=== PATIENT | male | born 1950 | race Asian ===

== ENCOUNTER 2018-01-07 00:22 | Inpatient (IN) | payer MEDICARE, MEDICAID ==
[~2018-01-07] VITALS: Ht 157.5 cm; Wt 58.3 kg
[2018-01-07] MEDS ORDERED: METF500T5 PO (00:48)
[2018-01-07] MEDS ORDERED: TRADJENTA PO (00:48)
[2018-01-07] MEDS ORDERED: LISINOPRIL PO (00:48)
[2018-01-07] MEDS ORDERED: INSU100V8 SQ (00:48)
[2018-01-07] MEDS ORDERED: HYDROCHLOROTHIAZIDE PO (00:48)
[2018-01-07] MEDS ORDERED: HYDR25TA6 PO (00:53)
[2018-01-07] MEDS ORDERED: LEVO75TA5 PO (00:53)
[2018-01-07] MEDS ORDERED: ATOR20TA9 PO (00:53)
[2018-01-07] MEDS ORDERED: LISI-170 PO (00:53)
[2018-01-07] MEDS ORDERED: LINA5TAB PO (00:53)
[2018-01-07] MEDS ORDERED: LEVO50TA5 PO (00:53)
[2018-01-07] MEDS ORDERED: SODIUM CHLORIDE 0.9% 1,000ML IVBOLUS ONE (01:00)
[2018-01-07] MEDS ORDERED: SODIUM CHLORIDE FLUSH 10ML SYR IVF ONE (01:00)
[2018-01-07 01:25] LABS: BASOPHILS # (AUTO) 0.02 x10^3/uL (0-0.1); BASOPHILS % (AUTO) 0 % (0-1); EOSINOPHILS # (AUTO) 0.07 x10^3/uL (0-0.4); EOSINOPHILS % (AUTO) 1 % (1-7); LYMPHOCYTES # (AUTO) 0.86 x10^3/uL (1-3.4); LYMPHOCYTES % (AUTO) 11 % (22-44); MD NO; MEAN CORPUSCULAR HEMOGLOBIN 31.9 pg (27.5-34.5); MEAN CORPUSCULAR HGB CONC 35.2 g/dL (33.2-36.2); MEAN CORPUSCULAR VOLUME 90.5 fL (81-97); MEAN PLATELET VOLUME 7.3 fL (7.4-10.4); MONOCYTES # (AUTO) 0.57 x10^3/uL (0.2-0.8); MONOCYTES % (AUTO) 7 % (2-9); NEUTROPHILS # (AUTO) 6.46 x10^3/uL (1.8-6.8); NEUTROPHILS % (AUTO) 81 % (42-75); PLATELET COUNT 216 x10^3/uL (130-400); RED BLOOD COUNT 4.47 x10^6/uL (4.38-5.82); RED CELL DISTRIBUTION WIDTH 13.7 % (9.4-14.8)
[2018-01-07 01:32] LABS: ALANINE AMINOTRANSFERASE 39 U/L (12-78); ALBUMIN 4.1 g/dL (3.4-5.0); ANION GAP 13 mmol/L (5-15); CALCIUM 8.9 mg/dL (8.5-10.1); CHLORIDE 74 mmol/L (98-107)
[2018-01-07 01:34] LABS: ALKALINE PHOSPHATASE 57 U/L (45-117); BILIRUBIN,TOTAL 1.3 mg/dL (0.2-1.0); CREATININE 1.01 mg/dL (0.7-1.3); TOTAL PROTEIN 7.9 g/dL (6.4-8.2)
[2018-01-07 01:36] LABS: TROPONIN I < 0.015 ng/mL (0.000-0.045)
[2018-01-07] MEDS ORDERED: ONDANSETRON 2MG/ML, 2ML ONE (02:18)
[2018-01-07] MEDS ORDERED: ONDANSETRON 2MG/ML, 2ML IVPush ONE (02:30)
[2018-01-07 03:14] LABS: OSMOLALITY,URINE 754 mOsm/kg (500-850)
[2018-01-07 03:18] LABS: CHLORIDE,URINE RANDOM 111 mmol/L; POTASSIUM,URINE RANDOM 26 mmol/L; SODIUM,URINE RANDOM 82 mmol/L
[2018-01-07 03:22] LABS: MICROSCOPIC NOT IND
[2018-01-07 03:25] LABS: CULTURE INDICATED? NO
[2018-01-07] MEDS ORDERED: BISACODYL 10 MG SUPP PR PRN (03:30)
[2018-01-07] MEDS ORDERED: ONDANSETRON 2MG/ML, 2ML IVPush PRN (03:30)
[2018-01-07] MEDS ORDERED: OXYcodone IR 5MG TABLET PO PRN (03:30)
[2018-01-07] MEDS ORDERED: DOCUSATE 100 MG CAPSULE PO PRN (03:30)
[2018-01-07] MEDS ORDERED: ENALAPRILAT 1.25 MG/ML, 2ML IVPush PRN (03:30)
[2018-01-07] MEDS ORDERED: POLYETHYLENE GLYCOL 17 GM PACKET PO PRN (03:30)
[2018-01-07] MEDS ORDERED: hydrALAzine 20 MG/ML, 1ML IVPush PRN (03:30)
[2018-01-07] MEDS ORDERED: ACETAMINOPHEN 325 MG TABLET PO PRN (03:30)
[2018-01-07] MEDS ORDERED: PROMETHAZINE 25 MG/ML, 1ML IM PRN (03:30)
[2018-01-07] MEDS ORDERED: LABETALOL 5MG/ML, 20ML IVPush PRN (03:30)
[2018-01-07] MEDS ORDERED: ONDANSETRON ODT 4 MG PO PRN (03:30)
[2018-01-07] MEDS ORDERED: morphine SULFATE 10 MG/ML, 1ML IVPush PRN (03:30)
[2018-01-07] MEDS: INSULIN LISPRO 100 UNITS/ML, PEN SQ-INSULIN SCH ×6 (04:00→20:30)
[2018-01-07 05:06] LABS: ANION GAP 10 mmol/L (5-15); CALCIUM 8.3 mg/dL (8.5-10.1); CHLORIDE 78 mmol/L (98-107)
[2018-01-07 05:12] LABS: HEMOGLOBIN A1C 7.8 % (4.2-6.3)
[2018-01-07 05:18] LABS: FREE T4 (FREE THYROXINE) 1.85 ng/dL (0.76-1.46)
[2018-01-07 05:23] VITALS: BP 154/89
[2018-01-07] MEDS: SODIUM CHLORIDE 0.9% 1,000 ML IV SCH ×3 (05:35→23:55)
[2018-01-07] MEDS: LEVOTHYROXINE 50 MCG TABLET PO SCH (06:23)
[2018-01-07 07:12] VITALS: BP 123/67
[2018-01-07] MEDS ORDERED: POTASSIUM CHLORIDE 20 MEQ TAB.ER.PRT PO SCH (08:00)
[2018-01-07] MEDS ORDERED: POTASSIUM PHOSPHATE 44 MEQ in SODIUM CHLORIDE 0.9% 500 ML IV ONE (08:00)
[2018-01-07] MEDS ORDERED: MAGNESIUM SULFATE PMX 4GM/100M 100 ML IV ONE (08:00)
[2018-01-07] MEDS: metFORMIN 500 MG TABLET PO SCH ×2 (09:33→20:29)
[2018-01-07] MEDS: LISINOPRIL 20 MG TABLET PO SCH (09:33)
[2018-01-07] MEDS: HEPARIN 5,000 UNITS/ML, 1ML SQ SCH ×2 (09:34→17:48)
[2018-01-07] MEDS: LINAGLIPTIN 5 MG TAB PO SCH (09:34)
[2018-01-07 10:03] LABS: CLOSTRIDIUM DIFFICILE ANTIGEN NEGATIVE; CLOSTRIDIUM DIFFICILE TOXIN NEGATIVE (Negative)
[2018-01-07 11:19] LABS: ANION GAP 11 mmol/L (5-15); CALCIUM 7.9 mg/dL (8.5-10.1); CHLORIDE 80 mmol/L (98-107); CREATININE 0.96 mg/dL (0.7-1.3)
[2018-01-07 12:42] VITALS: BP 122/76
[2018-01-07 17:41] LABS: ANION GAP 9 mmol/L (5-15); CALCIUM 7.6 mg/dL (8.5-10.1); CHLORIDE 90 mmol/L (98-107)
[2018-01-07 18:26] VITALS: BP 127/69
[2018-01-07] MEDS: INSULIN GLARGINE 100 UNITS/ML, PEN SQ-INSULIN SCH (20:00)
[2018-01-07] MEDS: ATORVASTATIN 20 MG TABLET PO SCH (20:29)
[2018-01-07 23:40] LABS: ANION GAP 8 mmol/L (5-15); CALCIUM 7.4 mg/dL (8.5-10.1); CHLORIDE 95 mmol/L (98-107); CREATININE 0.67 mg/dL (0.7-1.3)
[2018-01-08 01:29] VITALS: BP 113/65
[2018-01-08] MEDS: HEPARIN 5,000 UNITS/ML, 1ML SQ SCH ×3 (03:19→17:17)
[2018-01-08 05:55] LABS: BASOPHILS # (AUTO) 0.01 x10^3/uL (0-0.1); BASOPHILS % (AUTO) 0 % (0-1); EOSINOPHILS # (AUTO) 0.07 x10^3/uL (0-0.4); EOSINOPHILS % (AUTO) 1 % (1-7); LYMPHOCYTES % (AUTO) 11 % (22-44); MD NO; MEAN CORPUSCULAR HEMOGLOBIN 31.4 pg (27.5-34.5); MEAN CORPUSCULAR HGB CONC 34.1 g/dL (33.2-36.2); MEAN CORPUSCULAR VOLUME 91.9 fL (81-97); MEAN PLATELET VOLUME 7.3 fL (7.4-10.4); MONOCYTES # (AUTO) 0.35 x10^3/uL (0.2-0.8); MONOCYTES % (AUTO) 6 % (2-9); NEUTROPHILS # (AUTO) 4.69 x10^3/uL (1.8-6.8); NEUTROPHILS % (AUTO) 82 % (42-75); PLATELET COUNT 182 x10^3/uL (130-400); RED BLOOD COUNT 4.08 x10^6/uL (4.38-5.82); RED CELL DISTRIBUTION WIDTH 13.9 % (9.4-14.8)
[2018-01-08 06:03] LABS: ALBUMIN 3.1 g/dL (3.4-5.0); ANION GAP 11 mmol/L (5-15); CALCIUM 7.2 mg/dL (8.5-10.1); CHLORIDE 97 mmol/L (98-107)
[2018-01-08] MEDS: LEVOTHYROXINE 50 MCG TABLET PO SCH (06:03)
[2018-01-08 06:10] LABS: ALANINE AMINOTRANSFERASE 32 U/L (12-78); ALKALINE PHOSPHATASE 46 U/L (45-117); BILIRUBIN,TOTAL 0.7 mg/dL (0.2-1.0); CHOL/HDL RATIO 1.8; CHOLESTEROL, TOTAL < 50 mg/dL (140-239); CREATININE 0.64 mg/dL (0.7-1.3); HDL CHOLESTEROL (DIRECT) 28 mg/dL (40-60); TOTAL PROTEIN 6.3 g/dL (6.4-8.2); TRIGLYCERIDES 61 mg/dL (50-200); VLDL CHOLESTEROL 12 mg/dL (0-25)
[2018-01-08 06:11] LABS: HDL CHOL % 0 % (26-37); LDL CHOLESTEROL,CALCULATED 10 mg/dL (54-169); LDL/HDL RATIO 0.4 (0.5-3.0)
[2018-01-08] MEDS: INSULIN LISPRO 100 UNITS/ML, PEN SQ-INSULIN SCH ×4 (07:00→21:49)
[2018-01-08 07:50] VITALS: BP 115/62
[2018-01-08] MEDS: LISINOPRIL 20 MG TABLET PO SCH (08:42)
[2018-01-08] MEDS: LINAGLIPTIN 5 MG TAB PO SCH (08:42)
[2018-01-08] MEDS: metFORMIN 500 MG TABLET PO SCH ×2 (08:42→21:49)
[2018-01-08] MEDS: SODIUM CHLORIDE 0.9% 1,000 ML IV SCH ×2 (08:50→22:42)
[2018-01-08] MEDS: POTASSIUM CHLORIDE 20 MEQ TAB.ER.PRT PO SCH ×2 (08:50→17:17)
[2018-01-08] MEDS ORDERED: POTASSIUM PHOSPHATE 44 MEQ in SODIUM CHLORIDE 0.9% 500 ML IV ONE (09:00)
[2018-01-08 13:50] VITALS: BP 128/82
[2018-01-08] MEDS ORDERED: CHOLESTYRAMINE LIGHT 4GM PACKET PO PRN (14:00)
[2018-01-08 16:19] LABS: CRYPTOSPORIDIUM ANTIGEN Negative (Negative)
[2018-01-08 19:36] VITALS: BP 134/77
[2018-01-08] MEDS: ATORVASTATIN 20 MG TABLET PO SCH (21:49)
[2018-01-08] MEDS: INSULIN GLARGINE 100 UNITS/ML, PEN SQ-INSULIN SCH (21:50)
[2018-01-09] MEDS: HEPARIN 5,000 UNITS/ML, 1ML SQ SCH ×3 (01:08→17:06)
[2018-01-09 03:25] VITALS: BP 145/77
[2018-01-09 04:25] VITALS: BP 145/77
[2018-01-09 05:05] VITALS: BP 145/77
[2018-01-09] MEDS: LEVOTHYROXINE 75 MCG TABLET PO SCH (05:39)
[2018-01-09 06:00] LABS: ANION GAP 7 mmol/L (5-15); CALCIUM 7.8 mg/dL (8.5-10.1); CHLORIDE 105 mmol/L (98-107)
[2018-01-09 06:01] LABS: CREATININE 0.68 mg/dL (0.7-1.3)
[2018-01-09] MEDS: INSULIN LISPRO 100 UNITS/ML, PEN SQ-INSULIN SCH ×4 (07:00→21:18)
[2018-01-09 07:40] VITALS: BP 147/73
[2018-01-09] MEDS: NEUTRA PHOS K 250 MG TABLET PO SCH ×2 (09:52→21:18)
[2018-01-09] MEDS: metFORMIN 500 MG TABLET PO SCH ×2 (09:53→21:17)
[2018-01-09] MEDS: LINAGLIPTIN 5 MG TAB PO SCH (09:53)
[2018-01-09] MEDS: LISINOPRIL 20 MG TABLET PO SCH (09:54)
[2018-01-09] MEDS: SODIUM CHLORIDE 0.9% 1,000 ML IV SCH (11:46)
[2018-01-09 13:45] VITALS: BP 115/76
[2018-01-09 20:10] VITALS: BP 135/81
[2018-01-09] MEDS: INSULIN GLARGINE 100 UNITS/ML, PEN SQ-INSULIN SCH (21:17)
[2018-01-09] MEDS: ATORVASTATIN 20 MG TABLET PO SCH (21:18)
[2018-01-10 00:23] VITALS: BP 168/85
[2018-01-10] MEDS: HEPARIN 5,000 UNITS/ML, 1ML SQ SCH ×2 (00:28→09:09)
[2018-01-10] MEDS: SODIUM CHLORIDE 0.9% 1,000 ML IV SCH (00:28)
[2018-01-10 04:41] LABS: BASOPHILS # (AUTO) 0.01 x10^3/uL (0-0.1); BASOPHILS % (AUTO) 0 % (0-1); EOSINOPHILS % (AUTO) 2 % (1-7); LYMPHOCYTES # (AUTO) 2.24 x10^3/uL (1-3.4); LYMPHOCYTES % (AUTO) 36 % (22-44); MD NO; MEAN CORPUSCULAR HEMOGLOBIN 31.4 pg (27.5-34.5); MEAN CORPUSCULAR HGB CONC 34.2 g/dL (33.2-36.2); MEAN CORPUSCULAR VOLUME 91.9 fL (81-97); MEAN PLATELET VOLUME 7.4 fL (7.4-10.4); MONOCYTES # (AUTO) 0.59 x10^3/uL (0.2-0.8); MONOCYTES % (AUTO) 9 % (2-9); NEUTROPHILS # (AUTO) 3.32 x10^3/uL (1.8-6.8); NEUTROPHILS % (AUTO) 53 % (42-75); PLATELET COUNT 199 x10^3/uL (130-400); RED BLOOD COUNT 3.77 x10^6/uL (4.38-5.82); RED CELL DISTRIBUTION WIDTH 13.7 % (9.4-14.8)
[2018-01-10 04:52] LABS: CALCIUM 8.2 mg/dL (8.5-10.1); CHLORIDE 107 mmol/L (98-107)
[2018-01-10 04:55] LABS: ALBUMIN 3.1 g/dL (3.4-5.0); ANION GAP 7 mmol/L (5-15); CREATININE 0.63 mg/dL (0.7-1.3)
[2018-01-10] MEDS: LEVOTHYROXINE 75 MCG TABLET PO SCH (06:03)
[2018-01-10] MEDS ORDERED: POTASSIUM CHLORIDE 20 MEQ TAB.ER.PRT PO ONE (06:30)
[2018-01-10 07:34] VITALS: BP 143/84
[2018-01-10] MEDS ORDERED: AMLODIPINE 5 MG TABLET PO SCH (09:00)
[2018-01-10] MEDS: NEUTRA PHOS K 250 MG TABLET PO SCH (09:07)
[2018-01-10] MEDS: LISINOPRIL 20 MG TABLET PO SCH (09:08)
[2018-01-10] MEDS: metFORMIN 500 MG TABLET PO SCH (09:08)
[2018-01-10] MEDS: LINAGLIPTIN 5 MG TAB PO SCH (09:09)
[2018-01-10] MEDS: INSULIN LISPRO 100 UNITS/ML, PEN SQ-INSULIN SCH ×2 (09:19→12:49)
== END 2018-01-10 17:19 | disposition left against medical advice (07) | DRG 641 ==
LOC: ED 02:11 → EDIP 02:16 → ED 02:49 → 4WST 05:07 → UNDODISIN 01-10 14:55
PROVIDERS: ADMIT Internal Medicine; ATTEND Internal Medicine
DX: E87.1 Hypo-osmolality and hyponatremia (principal); R17 Unspecified jaundice; E83.39 Other disorders of phosphorus metabolism; E11.65 Type 2 diabetes mellitus with hyperglycemia; E87.6 Hypokalemia; D64.9 Anemia, unspecified; E03.9 Hypothyroidism, unspecified; E78.5 Hyperlipidemia, unspecified; E83.42 Hypomagnesemia; E86.0 Dehydration; I10 Essential (primary) hypertension; R19.7 Diarrhea, unspecified; Z53.21 Procedure and treatment not carried out due to patient leaving prior to being seen by health care provider; Z83.3 Family history of diabetes mellitus
CPT/HCPCS: 36415; 76700; 80048; 80053; 80061; 81003; 82040; 82436; 82570; 82962; 83036; 83690; 83735; 83935; 84100; 84133; 84295; 84300; 84439; 84443; 84484; 85025; 87046; 87324; 87328; 87329; 87427; 93005; 96361; 96374; J1644; J2405; J1815; J3475; J7030; J7040